=== PATIENT | male | born 1990 | race Caucasian/White ===

== ENCOUNTER 2018-03-30 09:12 | Emergency (ER) | payer OTHER ==
[2018-03-30] MEDS ORDERED: Ibuprofen TAB* 800 MG PO ONE ×2 (09:19→09:30)
--- NOTE | 2018-03-30 09:23 | ED ---
Upper Extremity Pain - HPI Summary HPI Summary: [id number] patient presents with very hand bruising, swelling, pain since punching a wall Monday night. He is not tried anything such as ibuprofen or ice prior to arrival presents to history of what sounds a boxer's fracture when he is in high school and pain is similar. Denies numbness tingling or weakness however pain is worse with gripping. Denies wrist pain elbow pain. No other complaints. - History of Current Complaint Chief Complaint: EDExtremityUpper Stated Complaint: RT HAND INJURY Time Seen by Provider: 03/30/18 09:15 Hx Obtained From: Patient - Allergies/Home Medications Allergies/Adverse Reactions: Allergies Allergy/AdvReac Type Severity Reaction Status Date / Time No Known Allergies Allergy Verified 03/30/18 09:13 Home Medications: Home Medications DULoxetine CAP* [Cymbalta CAP*] 60 mg PO DAILY 03/30/18 [History Confirmed ] PMH/Surg Hx/FS Hx/Imm Hx Previously Healthy: Yes Endocrine/Hematology History: Denies: Hx Anticoagulant Therapy, Hx Blood Disorders Musculoskeletal History: Reports: Hx Back Problems, Hx of Fracture(s) - Rt hand (boxer's fx?) Infectious Disease History: No Infectious Disease History: Denies: Traveled Outside the [place] in Last 30 Days - Social History Occupation: Disabled - OUT OF WORK CURRENTLY FOR BACK INJURY Lives: With Family Alcohol Use: Occasionally Hx Substance Use: No Substance Use Type: Reports: None Hx Tobacco Use: Yes Amount Used/How Often: 1/2PPD Review of Systems Constitutional: Negative Positive: no symptoms reported Positive: Arthralgia, Myalgia, Edema Positive: Bruising Neurological: Negative Psychological: Normal All Other Systems Reviewed And Are Negative: Yes Physical Exam Triage Information Reviewed: Yes Vital Signs On Initial Exam: Initial Vitals Temp Pulse Resp BP Pulse Ox 99.7 F 104 16 133/72 99 03/30/18 09:12 03/30/18 09:12 03/30/18 09:12 03/30/18 09:12 03/30/18 09:12 Vital Signs Reviewed: Yes Appearance: Positive: Well-Appearing, No Pain Distress, Well-Nourished Skin: Positive: Warm, Skin Color Reflects Adequate Perfusion, Dry - Rt hand edematous and bruised - no skin breakdown Head/Face: Positive: Normal Head/Face Inspection Eyes: Positive: EOMI ENT: Positive: Hearing grossly normal Respiratory/Lung Sounds: Positive: Breath Sounds Present Cardiovascular: Positive: Pulses are Symmetrical in both Upper and Lower Extremities Musculoskeletal: Positive: Strength/ROM Intact, Pain @ - with full gripping of Rt hand, Other - phalanges, wrist and forearm NTTP; Rt 5th MC is TTP Neurological: Positive: Normal, Sensory/Motor Intact, Alert, Oriented to Person Place, Time, CN Intact II-III Psychiatric: Positive: Normal Procedures - Splinting Right Upper Extremity Hand-Made Type: fiberglass Splint: volar Pre-Proc Neuro Vasc Exam: normal Post-Proc Neuro Vasc Exam: normal Diagnostics - Vital Signs Vital Signs Temp Pulse Resp BP Pulse Ox 03/30/18 09:12 99.7 F 104 16 133/72 99 - Laboratory Lab Statement: Any lab studies that have been ordered have been reviewed, and results considered in the medical decision making process. Course/Dx - Course Course Of Treatment: XR: non-displaced fx base of 4th MT - no dislocation. Splint placed and RICE and f/u w/ ortho this week. Danger s/sx reviewed - pt agrees w/ plan - Diagnoses Provider Diagnoses: Closed right hand fracture Discharge - Sign-Out/Discharge Documenting (check all that apply): Patient Departure - Discharge Plan Condition: Stable Disposition: HOME Patient Education Materials: Hand Fracture (ED), Splint Care (ED) Forms: *Work Release Referrals: No Primary Care Phys,NOPCP [Primary Care Provider] - Additional Instructions: REST, ICE, ELEVATE AND KEEP SPLINT CLEAN, DRY AND IN PLACE UNTIL SEEN BY ORTHOPEDICS. Call orthopedics today to schedule follow-up next week. You may take ibuprofen alternating with acetaminophen as needed for pain *If you develop numbness, tingling, weakness, swelling or skin discoloration, loosen JULIANA wrap and elevate arm for 20 minutes. If symptoms persist, return to ED - Billing Disposition and Condition Condition: STABLE Disposition: Home
--- NOTE | 2018-03-30 09:52 | RAD ---
INDICATION: RIGHT hand bruising, swelling, pain following punching injury. History of previous boxer's fracture. COMPARISON: No prior exams available on the [facility] for comparison. TECHNIQUE: AP, lateral, and oblique views RIGHT hand. REPORT: Healed fracture at the distal metaphysis of the fifth metacarpal. Grossly nondisplaced fracture at the proximal metaphysis of the fourth metacarpal. Intra-articular extension is not excluded. Normal articular alignment. Soft tissue swelling greatest over the dorsal aspect at the level of the metacarpals. IMPRESSION: #. Grossly nondisplaced fracture at the proximal metaphysis of the fourth metacarpal. Intra-articular extension is not excluded.
[2018-03-30 10:02] VITALS: BP 145/83
== END 2018-03-30 10:01 | disposition home or self-care (01) ==
LOC: ED 09:12
DX: S62.344A Nondisplaced fracture of base of fourth metacarpal bone, right hand, initial encounter for closed fracture (principal); W22.09XA Striking against other stationary object, initial encounter; Y92.9 Unspecified place or not applicable; F17.200 Nicotine dependence, unspecified, uncomplicated
CPT/HCPCS: 99282; A9270-GY